=== PATIENT | female | born 1970 | race Hispanic/Latino ===

== ENCOUNTER 2020-10-10 19:54 | Emergency (ER) | payer MEDICARE, OTHER ==
[~2020-10-10] VITALS: Ht 157.5 cm; Wt 99.3 kg
--- NOTE | 2020-10-10 20:37 | Emergency Department Note ---
History of Present Illnes History of Present Illness Chief Complaint: Skin Rash or Abscess History of Present Illness This is a 50 year old female RESENTS TO ED WITH APPROX 1 CM X 1 CM RAISED SITE TO LEFT UPPER THIGH X3 YEARS, NO REDNESS OR WARMTH NOTED; PTS V/S/S; NAD NOTED; ER MD TO TRIAGE FOR INITIAL EVAL. PT STATES THE SITE INTERMITTENTLY SWELLS UP AND DRAINS. IT OPENED AND DRAINED AGAIN TODAY, THIS IS FIRST TIME SHE HAS SOUGHT MEDICAL CARE FOR THIS ISSUE . Historian: Patient Arrival Mode: Car Watch Dial Printer Required: No Onset (how long ago): year(s) (3) Location: LEFT THIGH Quality: SWOLLEN AREA WITH DRAINAGE Radiation: Reports non-radiation Severity: mild Onset quality: gradual Duration (how long): month(s) (36) Timing of current episode: constant Progression: waxing and waning Chronicity: chronic Context: Denies recent illness Relieving factors: none Exacerbating factors: none Associated symptoms: Reports denies other symptoms Past Medical/Family History Physician Review I have reviewed the patient's past medical and family history. Any updates have been documented here. Past Medical History Recent Fever: No Clinical Suspicion of Infectio: No New/Unexplained Change in Ment: No Past Medical History: Diabetes, Asthma Past Surgical History: PCI Other Surgery: CATARACTS Social History Smoking Cessation: Never Smoker Counseling Performed: No Alcohol Use: None Any Illegal Drug Use: No Physically hurt or threatened: No Other Last Tetanus: UNKNOWN Any Pre-Existing Lines (PICC,: No Review of Systems Review of Systems Constitutional: Reports no symptoms EENTM: Reports no symptoms Cardiovascular: Reports no symptoms Respiratory: Reports no symptoms Gastrointestinal: Reports no symptoms Genitourinary: Reports no symptoms Musculoskeletal: Reports no symptoms Integumentary: Reports as per HPI Neurological: Reports no symptoms Psychological: Reports no symptoms Endocrine: Reports no symptoms Hematological/Lymphatic: Reports no symptoms Physical Exam Related Data Allergies: Coded Allergies: Etodolac (Verified Allergy, 03/25/14) acetaminophen (Verified Allergy, 03/25/14) bacitracin (Verified Allergy, 03/25/14) celecoxib (Verified Allergy, 03/25/14) hydrocodone (Verified Allergy, 03/25/14) morphine (Verified Allergy, 03/25/14) Triage Vital Signs Vital Signs Date Time Temp Pulse Resp B/P (MAP) Pulse Ox O2 Delivery O2 Flow Rate FiO2 11/19/20 19:58 98.3 68 16 124/62 100 Room Air Vital signs reviewed: Yes Physical Exam CONSTITUTIONAL Constitutional: Present well-developed, Present well-nourished HENT HENT: Present normocephalic, Present atraumatic, Present oropharynx c lear/moist, Present nose normal HENT L/R: Present left ext ear normal, Present right ext ear normal EYES Eyes: Reports PERRL, Reports conjunctivae normal NECK Neck: Present ROM normal PULMONARY Pulmonary: Present effort normal, Present breath sounds normal CARDIOVASCULAR Cardiovascular: Present regular rhythm, Present heart sounds normal, Present capillary refill normal, Present normal rate GASTROINTESTINAL Abdominal: Present soft, Present nontender, Present bowel sounds normal GENITOURINARY Genitourinary: Present exam deferred SKIN PT HAS A 1.5X1.5 CYST TO LEFT INNER THIGH, NO REDNESS, NO WARMTH, NO SIGN OF INFECTION, SITE IS OPEN AND HAS DRAINAGE PRESENT. MUSCULOSKELETAL Musculoskeletal: Present ROM normal NEUROLOGICAL Neurological: Present alert, Present oriented x 3, Present no gross motor or sensory deficits PSYCHOLOGICAL Psychological: Present mood/affect normal, Present judgement normal Assessment & Plan Medical Decision Making MDM PT WITH SEBACEOUS CYST TO LEFT THIGH INSTRUCTED TO FOLLOW UP WITH SURGEON Assessment & Plan Final Impression: (1) Sebaceous cyst Depart Disposition: HOME, SELF-CARE Last Vital Signs Date Time Temp Pulse Resp B/P (MAP) Pulse Ox O2 Delivery O2 Flow Rate FiO2 10/10/20 19:58 98.3 68 16 124/62 100 Room Air MARTHA RICHARDSON MD Oct 10, 2020 20:37
== END 2020-10-10 20:20 | disposition home or self-care (01) ==
LOC: ER 20:10
DX: L72.3 Sebaceous cyst (principal); E11.9 Type 2 diabetes mellitus without complications; J45.909 Unspecified asthma, uncomplicated
CPT/HCPCS: 99282